=== PATIENT | female | born 1970 | race Caucasian/White ===

== ENCOUNTER → 2016-04-03 | Outpatient (CLI) | payer OTHER | LOC: LAB 07:30 | DX: R07.9 Chest pain, unspecified (principal); E06.3 Autoimmune thyroiditis; I34.1 Nonrheumatic mitral (valve) prolapse; I10 Essential (primary) hypertension; E78.1 Pure hyperglyceridemia ==

== ENCOUNTER → 2016-04-05 | Outpatient (CLI) | payer OTHER ==
--- NOTE | 2016-04-05 16:58 | RADIOLOGY REPORT PS360 ---
ECHO ADULT PROCEDURE: 2-D M-mode and color Doppler study INDICATIONS FOR THE TEST: Chest pain + COPD Heart Murmur Tobacco Smoking Palpitations Fatigue Syncope Edema Hypertension Diabetes Mellitus Rheumatic Fever SOB+[place] Obesity Hyperlipidemia Family History HD Additional History HISTORY OF MVP, MICKEY'S DISEASE PATIENT INFORMATION HEIGHT: 64 WEIGHT:198 GENDER: Female B/P:130/72 2-D/M-MODE INTERPRETATION: 2-D MEASUREMENTS OBSERVED VALUES IN CMS Right Ventricular Dimension (RVDd) 2.1 Interventricular Septum (Thickness)(IVsd) 1.2 Left Ventricular Internal Dimensions(LVIDd) 5.3 Left Ventricular Posterior Wall (Thickness)(LVPWd) 0.9 Aortic Root 3.5 Aortic Cusp Separation 2.2 Left Atrial Dimensions (LAD) 3.9 2D 1. Left atrium is normal size, left ventricle is normal size, there is preserved left ventricular systolic function, visually estimated ejection fraction of 55% with no obvious regional wall motion abnormality. 2. The right atrium and right ventricle are normal size and contractility. 3. The aortic valve is structurally normal. 4. The mitral valve leaflets are mildly myxomatous, there is mild focal prolapse of the posterior mitral leaflet, there is no mitral stenosis. 5. The tricuspid valve restructure normal 6. The pulmonic valve not well visualized 7. No significant pericardial effusion noted DOPPLER INTERROGATION: 1. The aortic outflow velocities within normal range, there is no aortic stenosis or aortic insufficiency. 2. The mitral inflow velocity within normal range, there is no mitral stenosis, there is mild mitral regurgitation. 3. There is trace tricuspid regurgitation noted, tricuspid regurgitant jet velocity insufficient for calculation of the right ventricular systolic pressure. 4. There is mild pulmonic insufficiency seen. CONCLUSION: 1. Normal left ventricular size preserved left ventricular systolic function, visually estimated ejection fraction of 55% with no obvious regional wall motion abnormality. 2. 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 3. Trace tricuspid and mild pulmonic insufficiency seen. 4. No significant pericardial effusion noted.
== END ==
LOC: RT 10:09
DX: R07.9 Chest pain, unspecified (principal); E06.3 Autoimmune thyroiditis; I34.1 Nonrheumatic mitral (valve) prolapse; I10 Essential (primary) hypertension; E78.1 Pure hyperglyceridemia